=== PATIENT | female | born 1955 | race Two or more races ===

== ENCOUNTER 2024-12-25 10:44 | Emergency (ER) | payer MEDICARE, MEDICAID, SELFPAY ==
[2024-12-25] VITALS (7 sets, daily range): BP systolic 140–165; BP diastolic 55–70; PULSE 53–67; RESP 16–19; TEMP 36.6–36.8; O2SAT 93–98; BMI 32.5
--- NOTE | 2024-12-25 10:55 | XR_ITS ---
Examination: AP chest single view Technique one AP portable upright chest single view Exam date and time: December 25, 2024 1134 hours INDICATIONS: Acute chest pain shortness of breath today. FINDINGS: Prominent bibasilar pneumonia Mild enlargement cardiac contour with moderate vascular congestion Median sternotomy wires Prominent osteopenia IMPRESSION: Significant bibasilar pneumonia Suspicious for mild associated heart failure
--- NOTE | 2024-12-25 10:55 | EKG_ITS ---
[facility] Test Date: 2024-12-25 Pat Name: LOUANN GAMEZ Department: Room: - Gender: Female Carpenter Ship: : [id number] Requested By: Luis Zavala Order Number: [id number] Reading MD: Luis Zavala Measurements Intervals [place] Rate: 65 P: 17 TX: 177 QRS: 24 QRSD: 88 T: 119 QT: 443 QTc: 464 Interpretive Statements SINUS RHYTHM MINIMAL ST DEPRESSION [0.025+ mV ST DEPRESSION] ABNORMAL QRS-T ANGLE [QRS-T AXIS DIFFERENCE > 60] No previous ECG available for comparison /[id number]/[email or web address]/[id number].pdf
--- NOTE | 2024-12-25 10:56 | XR_ITS ---
Examination: Venous duplex lower extremity sonogram, bilateral. Date and time of exam: December 25, 2024 1213 hours INDICATIONS: Bilateral leg swelling and nonhealing wounds 3 months Technique: Multiple sonographic images of the deep venous system have been obtained. B-mode/2-D grayscale imaging of vascular structures and Doppler spectral analysis (waveforms) and color performed Both legs are examined. Findings: Deep venous systems do not demonstrate abnormal echogenicity. All visualized deep veins exhibit compressibility. All visualized deep veins exhibit augmentation. Impression: Negative for deep vein thrombosis
--- NOTE | 2024-12-25 11:05 | PD.EDEXREM ---
ED Extremity Problem RME/HPI General Chief complaint: Extremity Injury, Lower Stated complaint: LEG PAIN WITH SWELLING Time Seen by Provider: 12/25/24 10:54 Arrival date/time: 12/25/24 10:44 Limitations: no limitations RME / HPI RME / HPI Narrative: 69 year old female with history of CHF, hypertension, diabetes, and hyperlipidemia presents to the ED BIBA from home for evaluation of bilateral lower extremity pain, swelling, and weeping today. States pain began yesterday and gradually worsening, worse to the left lower extremity. Reportedly had consulted with her PCP yesterday however states she was given no clear instructions. Denies fevers, chills, sweats, chest pain, cough. Related Data Previous Rx's ?Medication ?Instructions ?Recorded empagliflozin 10 mg tablet 10 mg PO QAM #30 tabs 12/25/24 (Jardiance) Allergies Allergy/AdvReac Type Severity Reaction Status Date / Time No Known Allergies Allergy Verified 12/25/24 11:40 Review of Systems Review of Systems Systems Reviewed: All systems reviewed, normal except as documented Past Medical History Past Medical History CARDIAC: Positive Hypercholesterolemia, Congestive Heart Failure and Hypertension RESPIRATORY: Negative Chronic Obstructive Pulmonary Disease (COPD) GENITOURINARY: Negative Renal Disease ENDOCRINE: Positive Diabetes Mellitus Type 2; Negative Diabetes Mellitus Type 1 Social History SMOKING STATUS: Never smoker ED Exam General Limitations: Present no limitations General appearance: Present alert and other (appears depressed ) Head Head exam: Present atraumatic, normocephalic and normal inspection Eye Eye exam: Present normal appearance, PERRL and EOMI ENT ENT exam: Present normal exam, normal oropharynx and mucous membranes moist Neck Neck exam: Present normal inspection, full ROM and trachea midline Chest Chest inspection: Present normal inspection and symmetric chest wall rise Respiratory Respiratory exam: Present normal lung sounds bilaterally Cardiovascular Cardiovascular exam: Present regular rate, normal rhythm and normal heart sounds Abdominal Exam Abdominal exam: Present soft and normal bowel sounds Extremities Exam Extremities exam: Present full ROM and other (Significant calf tenderness, L>R. Bilateral lower extremity edema with chronic venous stasis changes. ) Back Exam Back exam: Present normal inspection and full ROM Neurological Exam Neurological exam: Present alert, oriented X3 and CN II-XII intact Psychiatric Psychiatric exam: Present depressed Skin Skin exam: Present warm, dry, intact and normal color Course Quality Measures none Orders Category Date Time Status Continuous Pulse Oximetry ONCE Care 12/25/24 10:55 Completed EKG (ED ONLY) *Do not use* NOW Care 12/25/24 10:55 Completed Insert IV STAT Care 12/25/24 10:55 Active Discharge Routine Discharge 12/25/24 17:26 Active Discharge Routine Discharge 12/25/24 17:36 Active EKG (ED Only) Stat Exams 12/25/24 10:55 Draft US venous doppler LE BI Stat Exams 12/25/24 10:56 Completed XR chest 1V portable Stat Exams 12/25/24 10:55 Completed B-Type Natriuretic Peptide Stat Lab 12/25/24 11:13 Completed CBC Stat Lab 12/25/24 11:13 Completed Comprehensive Metabolic Panel Stat Lab 12/25/24 11:13 Completed Prothrombin Time with INR Stat Lab 12/25/24 11:13 Completed Troponin I Stat Lab 12/25/24 11:13 Completed Furosemide Inj [Lasix Inj] Med 12/25/24 10:56 Discontinued 80 mg IVP X1 ONE HYDROmorphone INJ [Dilaudid Inj] Med 12/25/24 12:29 Discontinued 1 mg IVP X1 ONE Reevaluation(s) Reevaluation #1: Patient remains clinically stable throughout the emergency department visit. We reviewed all the results, analysis, and treatment plans. Patient is amenable to discharge. Strict return precautions were outlined. Patient was discharged in stable condition. Vital Signs Vital signs: Vital Signs Temperature 98.1 F 12/25/24 10:50 Pulse Rate 67 12/25/24 10:50 Respiratory Rate 18 12/25/24 10:50 Blood Pressure 156/70 H 12/25/24 10:50 Pulse Oximetry (%) 95 12/25/24 10:50 Oxygen Delivery Method Room Air 12/25/24 10:50 Pulse ox is 95% on room air which is adequate. Extremity Problem MDM Narrative MDM Narrative:: Olga Bhandari am scribing for and in the presence of Dr. Zavala. Patient data External records reviewed:: EMS form Clinical information provided by:: patient and EMS Social determinants that could affect healthcare access:: none Patient has the following chronic illnesses:: CHF, hypertension, diabetes, and hyperlipidemia How is presenting disease/condition affected by chronic disease/condition?: exacerbated by Evaluation data The following diagnostics were reviewed and interpreted by me:: lab results, radiology exam(s) and EKG tracing(s) (EKG at 11:47 am. Sinus rhythm, rate 65, no acute ST or T-wave changes ) Lab and/or radiology exams considered but not ordered:: None Interpretation Summary: Ordering Physician: Luis Zavala MD Date of Service: 12/25/24 Procedure(s): XR chest 1V portable Accession Number(s): [id number] cc: Luis Zavala MD; Samuel Carter MD~ Examination: AP chest single view Technique one AP portable upright chest single view Exam date and time: December 25, 2024 1134 hours INDICATIONS: Acute chest pain shortness of breath today. FINDINGS: Prominent bibasilar pneumonia Mild enlargement cardiac contour with moderate vascular congestion Median sternotomy wires Prominent osteopenia IMPRESSION: Significant bibasilar pneumonia Suspicious for mild associated heart failure Dictated By: Samuel Carter MD Signed By: <Electronically signed by Samuel Carter MD in [place]> 12/25/24 1147 Ordering Physician: Luis Zavala MD Date of Service: 12/25/24 Procedure(s): US venous doppler LE BI Accession Number(s): [id number] cc: Luis Zavala MD; Samuel Carter MD; Jimmy PetersP~ Examination: Venous duplex lower extremity sonogram, bilateral. Date and time of exam: December 25, 2024 1213 hours INDICATIONS: Bilateral leg swelling and nonhealing wounds 3 months Technique: Multiple sonographic images of the deep venous system have been obtained. B-mode/2-D grayscale imaging of vascular structures and Doppler spectral analysis (waveforms) and color performed Both legs are examined. Findings: Deep venous systems do not demonstrate abnormal echogenicity. All visualized deep veins exhibit compressibility. All visualized deep veins exhibit augmentation. Impression: Negative for deep vein thrombosis Dictated By: Samuel Carter MD Signed By: <Electronically signed by Samuel Carter MD in [place]> 12/25/24 1408 Medications / Prescriptions Medications or Prescriptions considered but not ordered:: None Medication administrations:: Medication Administration History Discontinued Medications Furosemide (Furosemide Inj 10 Mg/Ml 4ml Vial) 80 mg IVP X1 ONE Stop: 12/25/24 10:57 Last Admin: 12/25/24 13:05 Dose: 80 mg Documented By: ER Hydromorphone HCl (Hydromorphone Inj 2 Mg/Ml Vial) 1 mg IVP X1 ONE Stop: 12/25/24 12:30 Last Admin: 12/25/24 12:39 Dose: 1 mg Documented By: ER See above Consultations Consultation(s) initiated? (list below): No Diagnosis Extremity Problem Differential Diagnosis: gout, cellulitis, lower extremity edema and deep vein thrombosis of lower extremity Most likely diagnosis given after review of the tests above:: Edema PVD Admission Indicated Admission indicated?: not indicated Admission Request Was there a request for admission?: No Disposition Plan Disposition Plan: Discharge Discharge Attestation Discharge Attestation: The patient and all family members were given an opportunity to ask questions and understood the discharge instructions. Discharge instructions specifically effects, indications for sooner follow up or return to the emergency department, and the expected course of current diagnosis. Patient condition: Stable Discharge Plan Plan Patient Disposition: HOME (Self Care) Patient condition on transfer: Stable Prescriptions/Referrals Prescriptions/Med Rec: New Jardiance 10 mg tablet 10 mg PO QAM Qty: 30 0RF Referrals: Jimmy Peters FNP [Primary Care Provider] - In 1 week Problem List Clinical Impression: Edema, PVD (peripheral vascular disease), Vascular disease, Leg edema Patient/Caregiver Discharge Instructions Discharge Activity: activity as tolerated Education Materials: Diabetes PAD, ED Leg Swelling in Both Legs Print Language: Irish Stand Alone Forms: Nida Award Info., Patient Portal Info Letter
[2024-12-25 11:26] LABS: Basophils % (Auto) 1 % (0-2.5); Eosinophils # (Auto) 0.2 Thou/mm3 (0.0-0.5); Eosinophils % (Auto) 3 % (0-10); Hematocrit 23.4 % (36.0-46.0); Immature Granulocytes % (Auto) 0 % (0-0); Immature Granulocytes Auto 0.02 Thou/mm3 (0.00-0.00); Lymphocytes % (Auto) 21 % (10-50); Mean Corpuscular HGB Conc 32.1 g/dl (31.0-37.0); Mean Corpuscular Hemoglobin 29.2 pg (25.0-35.0); Mean Corpuscular Volume 91 fL (80-100); Monocytes # (Auto) 0.4 Thou/mm3 (0.0-0.8); Monocytes % (Auto) 9 % (0-12); Neutrophils # (Auto) 3.1 Thou/mm3 (1.8-7.7); Neutrophils % (Auto) 66 % (37-80); Nucleated Red Blood Cell % 0 /100 WBC (0); Platelet Count 183 Thou/mm3 (140-440); RDW Standard Deviation 50.1 fL (36.4-46.3); Red Blood Count 2.57 Miln/mm3 (4.00-5.20); White Blood Count 4.6 Thou/mm3 (3.6-11.0)
[2024-12-25 11:33] LABS: Hemoglobin 7.5 g/dL (12.0-16.0)
[2024-12-25 11:39] LABS: Prothrombin Time 11.4 Seconds (9.0-12.2)
[2024-12-25 11:55] LABS: B-Type Natriuretic Peptide 386 pg/mL (0-100)
[2024-12-25 11:56] LABS: Alanine Aminotransferase 9 U/L (10-49); Albumin, Serum 2.8 gm/dL (3.4-4.8); Albumin/Globulin Ratio 1.2 (1.2-2.2); Alkaline Phosphatase 71 U/L (46-116); Anion Gap 9 (7-16); Aspartate Amino Transferase 21 U/L (0-34); BUN/Creatinine Ratio 28 Ratio (12-20); Bilirubin,Total 0.2 mg/dL (0.3-1.2); Blood Urea Nitrogen 47 mg/dL (9-23); Calcium 7.8 mg/dL (8.3-10.6); Calcium (Corrected) 8.8 mg/dL (8.5-10.1); Carbon Dioxide 21.8 mMol/L (20.0-31.0); Chloride 115 mMol/L (98-107); Creatinine (Component) 1.7 mg/dL (0.6-1.3); Estimated Creatinine Clearance 33.6 mL/min (>60); Globulin 2.4 gm/dL (2.3-3.5); Glucose 100 mg/dL (74-106); Osmolality,Calculated 302 (275-295); Potassium 4.8 mMol/L (3.4-5.1); Sodium 146 mMol/L (136-145); Total Protein 5.2 gm/dL (5.7-8.2); Troponin I < 0.020 ng/mL (0.0-0.045); eGFR 32 See Note
[2024-12-25] MEDS: HYDROmorphone INJ 2 MG/ML VIAL 1 MG IVP (12:39)
[2024-12-25] MEDS: FUROSEMIDE INJ 10 MG/ML 4ML VIAL 80 MG IVP (13:05)
--- NOTE | 2024-12-25 20:00 | PD.EDADDENDU ---
Emergency Room Addendum Addendum Narrative: 1800: Care assumed from Dr. Luis Zavala (emergency physician). Past medical, surgical, social and family history reviewed. Vitals and home medications reviewed. Results and treatment plan discussed. I will assume the care of the patient at this time and will follow the patient, pending patient's further questions and concerns. The following addendum documentation note is intended to reflect any pending information, findings, or radiology results not included in the patient?s initial chart by the previous shift carlota. 1950: I have spoken with the patient and discussed today?s findings, in addition to providing specific details for the plan of care. Questions are answered and there is an agreement with the plan. Re-assessment at the time of disposition demonstrates that the patient is in no acute distress. The patient has remained stable throughout the entire ED visit and is without objective evidence for acute process requiring urgent intervention or hospitalization. The patient is stable for discharge; counseling is provided and documented as above, discussed symptomatic treatment and specific conditions for return.
[2024-12-25] MEDS: ACETAMINOPHEN 500 MG TABLET 1000 MG PO (20:01)
== END 2024-12-25 20:14 | disposition home or self-care (01) ==
PROVIDERS: Emergency Provider Emergency Medicine; PCP Nurse Practitioner Family
DX: E11.51 Type 2 diabetes mellitus with diabetic peripheral angiopathy without gangrene (principal); J18.9 Pneumonia, unspecified organism; I11.0 Hypertensive heart disease with heart failure; I50.9 Heart failure, unspecified; Z79.84 Long term (current) use of oral hypoglycemic drugs
CPT/HCPCS: 36415; 71045; 80053; 83880; 84484; 85025; 85610; 93005; 93970; 96374; 96375; 99284; J1171; J1938; A9270